=== PATIENT | female | born 1965 | race Caucasian/White ===

== ENCOUNTER 2016-05-23 16:03 | Inpatient (IN) ==
[2016-05-23] MEDS ORDERED: ONDANSETRON 4 MG/2 ML VIAL IV PRN (16:50)
[2016-05-23] MEDS ORDERED: DOCUSATE SODIUM 100 MG CAPSULE PO PRN (16:50)
[2016-05-23] MEDS ORDERED: ZALEPLON 5 MG CAPSULE PO PRN (16:50)
--- NOTE | 2016-05-23 17:23 | XRay Report ---
XR chest 2V Date: 05/23/2016 4:44 PM History: Generalized abdominal pain Comparison: 05/23/2016 Technique: PA and lateral chest Findings: The heart is borderline in size with uncoiling of the aorta. Progressive atelectasis/infiltration in both mid to lower lung zones. Stable mediastinum with degenerative changes. Impression: Limited expiratory chest with progressive atelectasis/infiltration at the lung bases. PROCEDURE INTERPRETED AT [facility] DEPARTMENT OF RADIOLOGY Final Report Signed by: Dr. Alexsandra Corey
--- NOTE | 2016-05-23 17:24 | XRay Report ---
Exam: XR abdomen 2V Date: 05/23/2016 4:44 PM Comparison: 07/30/2013 Indication: Generalized abdominal pain Technique:[Supine and erect abdomen] Findings: Gaseous distention of the bowel, especially the small bowel. Air-fluid levels are noted with no free air. Prior cholecystectomy. Degenerative changes are noted. Impression: Mild gaseous distention of bowel could be related to SBO rather than ileus. There is increased fecal material in the colon. Prior cholecystectomy. PROCEDURE INTERPRETED AT [facility] DEPARTMENT OF RADIOLOGY Final Report Signed by: Dr. Alexsandra Corey
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
[2016-05-23] MEDS: SODIUM CHLORIDE 0.45% 1,000 ML IV SCH (20:40)
[2016-05-23] MEDS: metroNIDAZOLE INJ 750 MG in PREMIX 1 EACH IV SCH (20:41)
[2016-05-23] MEDS: GABAPENTIN 400 MG CAPSULE PO SCH (20:44)
[2016-05-23] MEDS ORDERED: BUPRENORPHINE HCL 8 MG SL SCH (21:00)
[2016-05-23] MEDS: CIPROFLOXACIN INJ 400 MG in PREMIX 1 EACH IV SCH (22:34)
--- NOTE | 2016-05-23 22:45 | XRay Report ---
Portable chest Date: 05/23/2016 Clinical history: Nasogastric tube Comparison: 05/23/2016 Technique: Portable AP sitting chest Findings: The tip of the nasogastric tube projects in the stomach. Sidehole at the GE junction. Impression: The tip of the nasogastric tube projects in the stomach. Side hole at the GE junction. Ideally the tube should be advanced further into the stomach. PROCEDURE INTERPRETED AT [facility] DEPARTMENT OF RADIOLOGY Final Report Signed by: Dr. Alexsandra Corey
[2016-05-24 00:13] LABS: Apearance,Urine Slightly Hazy (Clear); Bacteria,Urine Moderate /HPF (Few); Bilirubin,Urine Negative (Negative); Blood, Urine Moderate mg/dL (Negative); Glucose,Urine (UA) Negative (Negative); Ketones,Urine 5 mg/dL (Negative); Mucus,Urine Few /LPF (Occasional); Nitrite,Urine Positive (Negative); Protein,Urine 100 MG/DL; RBC,Urine 74 /HPF (0-4); Squamous Epithelial Cell,Urine Occasional /HPF (0-10); Urine Color Yellow (Yellow); Urine Specific Gravity 1.025 (1.001-1.035); Urine Urobilinogen < 2.0 EU/DL (0.2-1.0); WBC,Urine 76 /HPF (0-6)
[2016-05-24] MEDS: metroNIDAZOLE INJ 750 MG in PREMIX 1 EACH IV SCH ×3 (03:34→20:34)
[2016-05-24] MEDS: ACETAMINOPHEN 325 MG TABLET PO PRN (05:20)
[2016-05-24] MEDS: SODIUM CHLORIDE 0.45% 1,000 ML IV SCH ×2 (06:12→16:47)
[2016-05-24 06:17] LABS: Basophils % 0.1 % (0.0-0.8); Hematocrit 31.1 VOL% (35.7-47.0); Hemoglobin 10.1 GM/DL (12.0-16.0); Immature Granulocytes % 1.1 %; Lymphocytes # 0.6 10*3/uL (1.4-4.0); Lymphocytes % 3.5 % (21.3-54.2); Mean Corpuscular HGB Conc 32.5 GM/DL (32-36); Mean Corpuscular Hemoglobin 29 PG (27-34); Mean Corpuscular Volume 90.7 FL (87-102); Mean Platelet Volume 9.8 FL (9.6-12.0); Monocytes # 0.3 10*3/uL (0.11-0.8); Monocytes % 1.6 % (1.7-12.7); Neutrophils # 17.1 10*3/uL (1.4-7.4); Neutrophils % 93.7 % (38.7-73.9); Platelet Count 287 T/CUMM (130-400); Red Blood Count 3.43 MC/CUMM (3.8-5.5); Red Cell Distribution Width 13.2 % (9.3-17.3); White Blood Count 18.3 T/CUMM (4-12)
--- NOTE | 2016-05-24 06:48 | CT Report ---
CT abdomen pelvis w con Indication: Abdominal pain, left lower quadrant Comparison: Outside CT abdomen and pelvis dated May 23, 2016 Technique: Multiple axial tomographic images of the abdomen and pelvis were obtained after the administration of 100 cc Omnipaque 350 intravenous contrast. Findings: Bibasilar atelectasis/consolidation noted which is greater on the right. Mild fatty infiltration along the falciform ligament. Subcentimeter hypodensity noted within segment 4 of the liver which is too small to characterize. Subcentimeter focus of hyperenhancement is noted within the left lobe of the liver which remains hyperdense on delayed phase. Status post cholecystectomy. Mild intrahepatic ductal dilatation. Pancreas and spleen grossly unremarkable. Bilateral adrenal glands grossly unremarkable. No evidence of hydronephrosis. Urinary bladder collapsed about a Schuler catheter and contains a small amount of air. Enteric tube noted with distal tip in mid stomach. There is moderate dilatation of proximal and mid small bowel without abrupt transition point. There is a tubular 1 cm thick fluid-filled density with peripheral enhancement located along the posterior aspect of the cecum. At the superior tip of the structure, there is a 3.0 x 2.0 x 1.5 cm fluid density. Wall thickening of the adjacent cecum noted. There is a 4.0 x 10.0 x 1.0 fluid collection within the ventral pelvis adjacent to the uterus with question of subtle peripheral enhancement. There is a 1.8 cm hypodensity in the left adnexa. There is a 4.0 x 3.5 cm fluid collection within the posterior pelvis adjacent to the rectosigmoid junction with minimal peripheral contrast enhancement suggested. Small amount of scattered ascites present. Mild atherosclerotic calcifications present. Degenerative change of the lumbar spine present. Tiny fat-containing umbilical hernia. IMPRESSION: Bibasilar atelectasis/consolidation. There is moderate dilatation of proximal and mid small bowel without abrupt transition point. Findings suspicious for ileus or partial small bowel obstruction. There is a tubular 1 cm thick fluid-filled density with peripheral enhancement located along the posterior aspect of the cecum. At the superior tip of the structure, there is a 3.0 x 2.0 x 1.5 cm fluid density. This could reflect a pericecal abscess or an inflamed appendix with a small abscess at its tip. Wall thickening of the adjacent cecum noted consistent with infection/inflammation. There is a 4.0 x 10.0 x 1.0 fluid collection within the ventral pelvis adjacent to the uterus with question of subtle peripheral enhancement. This collection is nonspecific but could reflect abscess. There is a 4.0 x 3.5 cm fluid collection within the posterior pelvis adjacent to the rectosigmoid junction with minimal peripheral contrast enhancement suggested. This collection is nonspecific but could reflect abscess. Small amount of scattered ascites present. There is a 1.8 cm hypodensity in the left adnexa. Consider pelvic ultrasound for further evaluation. Mild intrahepatic ductal dilatation status post cholecystectomy. Correlate with bilirubin. Incompletely characterized subcentimeter liver lesions are indeterminate. Preliminary report was issued by [facility]. Findings discussed with Dr. Shannon at 2:10 AM on May 24, 2016 by Deni Nowak MD. PROCEDURE INTERPRETED AT [facility] DEPARTMENT OF RADIOLOGY Final Report Signed by: Dr Mikel Cox
[2016-05-24 06:49] LABS: Band Neutrophils 3 % (0-10); Lymphocytes 9 % (20-55); Segmented Neutrophils 87 % (50-85); Total Cells Counted 100
[2016-05-24 06:50] LABS: Hypochromasia 1+; Platelet Estimate Adequate
[2016-05-24 06:54] LABS: Bilirubin,Total 0.5 MG/DL (0.2-1.0); Calcium 8.1 MG/DL (8.5-10.1); Osmolality,Calculated 277.4 MOS/KG (273-304); Potassium 3.8 MMOL/L (3.5-5.1); Total Protein 5.6 G/DL (6.4-8.3)
--- NOTE | 2016-05-24 07:30 | General Surgery Progress Note ---
Assessment and Plan (1) Abdominal pain Status: Acute Assessment and plan: This patient has a dilated appendix with surrounding inflammation and fluid and also some thickening in the cecum focally. There are several fluid collections throughout the pelvis. The most likely explanation given her location of her pain is appendicitis and I don't think that this will be amenable to percutaneous drainage and antibiotics alone so I recommended a diagnostic laparoscopy with appendectomy and drainage of any fluid that we can find. The patient has far as I can tell has never had a test despite 2 ER visits and admissions 5 ordered one this morning and assuming metastases negative we will go ahead with surgery today. Current Visit: Yes Subjective Patient reports: Present: still having pain, afebrile Narrative: The patient had a repeat CT scan last night which demonstrates a thickened appendix with some fluid around it and some reactive thickening in the cecum. There are also several fluid collections scattered throughout the pelvis in the cul-de-sac and anteriorly as well. Her white blood cell count is coming on 18, 000 from 25,000 but she is still having a lot of pain and tenderness. Exam - Constitutional Vitals: Period Temp Pulse Resp BP Sys/Duong Pulse Ox Last 24 Hr 98.6 F-99.7 F 69-137 16-22 108-176/49-78 93-97 General appearance: normal weight, mild distress - Head Head exam: Present: normal inspection, normocephalic - Eye Eye exam: Present: EOMI Pupils: Present: [place] - ENT ENT exam: Present: normal exam Mouth exam: Present: normal external inspection, normal voice - Neck Neck exam: Present: normal inspection, trachea midline - Respiratory Respiratory exam: Present: clear to auscultation bilaterally. Absent: accessory muscle use, chest wall tenderness - Cardiovascular Cardiovascular exam: Present: RRR. Absent: systolic murmur, tachycardia - GI/Abdominal GI/Abdominal exam: Present: distended, hypoactive bowel sounds, tenderness (the patient is most tender in the right lower quadrant.), soft - Extremities Exam Extremities exam: Present: normal inspection, normal capillary refill - Back Exam Back exam: Present: normal inspection - Neurological Exam Neurological exam: Present: alert, oriented X3 Speech: Present: normal - Skin Skin exam: Present: normal color, warm Results - Labs CBC & BMP: 05/24/16 05:09 05/24/16 05:09
[2016-05-24] MEDS ORDERED: TISSUE ADHESIVE 1 EACH APPLICATOR TOP ONE (07:38)
[2016-05-24] MEDS ORDERED: BUPIVACAINE MPF 0.25% /EPI 30 ML VIAL ONE (07:39)
[2016-05-24] MEDS ORDERED: LIDOCAINE 1%/EPI INJ 20 ML VIAL ONE (07:39)
[2016-05-24] MEDS ORDERED: ONDANSETRON 4 MG/2 ML VIAL ONE ×2 (08:10→09:50)
[2016-05-24] MEDS ORDERED: SUCCINYLCHOLINE 200 MG/10 ML VIAL ONE (08:10)
[2016-05-24] MEDS ORDERED: NEOSTIGMINE 10 MG/10 ML VIAL ONE (08:10)
[2016-05-24] MEDS ORDERED: KETOROLAC 30 MG/1 ML VIAL ONE ×2 (08:10→10:24)
[2016-05-24] MEDS ORDERED: DEXAMETHASONE 10 MG/1 ML VIAL ONE (08:10)
[2016-05-24] MEDS ORDERED: LIDOCAINE 2% 5 ML VIAL ONE (08:10)
[2016-05-24] MEDS ORDERED: ROCURONIUM 100 MG/10 ML VIAL IV ONE (08:10)
[2016-05-24] MEDS ORDERED: GLYCOPYRROLATE 0.4 MG/2 ML VIAL ONE (08:10)
[2016-05-24] MEDS ORDERED: PROPOFOL 200 MG/20 ML VIAL IV ONE (08:10)
[2016-05-24] MEDS ORDERED: PHENYLEPHRINE 1 MG/10 ML SYRINGE IV ONE (08:10)
[2016-05-24] MEDS: LACTATED RINGERS 1,000 ML IV SCH ×2 (08:17→09:41)
[2016-05-24] MEDS ORDERED: PANTOPRAZOLE 40 MG TABLET PO SCH (09:00)
[2016-05-24] MEDS ORDERED: VORTIOXETINE HYDROBROMIDE 10 MG PO SCH (09:00)
[2016-05-24] MEDS ORDERED: fentaNYL 100 MCG/2 ML VIAL ONE (09:47)
[2016-05-24] MEDS ORDERED: ACETAMINOPHEN 1,000 MG/100 ML VIAL IV ONE (09:47)
[2016-05-24] MEDS ORDERED: SEVOFLURANE 1 UNIT/15 MINUTE INH ONE (09:47)
[2016-05-24] MEDS ORDERED: LACTATED RINGERS 1,000 ML IV ONE (09:47)
[2016-05-24] MEDS ORDERED: MIDAZOLAM 2 MG/2 ML VIAL ONE (09:47)
[2016-05-24] MEDS ORDERED: HYDROmorphone 2 MG/1 ML VIAL ONE (09:50)
[2016-05-24] MEDS: HYDROmorphone 2 MG/1 ML VIAL IV PRN ×4 (09:52→10:07)
[2016-05-24] MEDS ORDERED: ONDANSETRON 4 MG/2 ML VIAL IV PRN (09:55)
--- NOTE | 2016-05-24 10:14 | Operative Note ---
Date of procedure: 05/24/16 Pre-op diagnosis: acute appendicitis Post-op diagnosis: other (acute perforated appendicitis with abscess) Procedure: Preoperative diagnosis Acute appendicitis Postoperative diagnosis Acute perforated appendicitis with abscess Procedures performed 1. Diagnostic laparoscopy 2. Laparoscopic lysis of adhesions 3. Laparoscopic appendectomy 4. Laparoscopic drainage of pelvic and pericolic abscess with drain placement 22 modifier Findings Diagnostic laparoscopy revealed severe inflammation with phlegmon changes and exudate in the right lower quadrant. There is extensive adhesions to the midline that were taken down using sharp dissection with electrocautery where needed. A complete laparoscopic lysis of adhesions was completed to visualize the pelvic structures. Once all the trochars were placed, the area in the right lower quadrant pericolic gutter after the colon was mobilized revealed a large eruption of pus and cultures were sent from this to the lab. What we found was that the appendix had basically a avulsed and ruptured about 1 cm distal to the base of the appendix and the remaining appendix was sitting free floating on its mesentery in the right lower quadrant. There was a large amount of pus associated with this. Cultures were sent from this to the lab. LORRIE drain was left in the abscess cavity. These findings made the case take more than twice usual length of time. For this reason a 22 modifier was added. Complications None apparent Specimen 1. Cultures from right lower quadrant abscess 2. Appendix Blood loss 10 mL Anesthesia GETA Indications Abdominal pain with evidence of appendicitis on CT scan Description of procedure The patient was taken to the operating room and transferred to the operating table in the supine position. Pressure points were padded and SCDs were placed large cavities. General endotracheal anesthesia was administered. The abdomen was prepped with chlorhexidine and draped sterilely. Preoperative antibiotics were administered, and a timeout was performed. The abdomen was entered and a right paramedian location supraumbilically with a Veress needle. Local anesthetic was administered and a 12 mm skin incision was made with an 11 blade scalpel. Veress needle was used to enter the peritoneal cavity with towel clips used to retract the abdominal wall. Intraperitoneal location was confirmed by double click technique. Aspiration was negative. Saline drop test confirmed intraperitoneal location. The abdomen was insufflated to 15 mmHg with an initial insufflation pressure of 7 mmHg. The Veress needle was removed and a 12 mm trocar was placed bluntly. Diagnostic laparoscopy was performed. There is a large amount of exudate and inflammation in the right lower quadrant with very injected and erythematous intestines in this location. There is also a large amount of adhesions to the midline between the omentum and the bowel. A 5 mm trocar was placed in the left lower quadrant under direct visualization after local anesthetic was administered. Laparoscopic lysis of adhesions was completed and complete adhesio lysis was performed to allow visualization of the pelvic structures and the extent of the pathology we were seeing. An additional 5 mm trocar was placed in the suprapubic location and the bowel was dissected away from the abdominal wall in the right lower quadrant where was fairly adhesed. He was able to be safely mobilized off the wall and when mobilizing the cecum medially large pus pocket was encountered and a large amount of pus was drained from this area. Cultures were sent from this to the lab. The cecum was eventually completely mobilized with tedious dissection that took much longer than usual because of inflammation present. Once the colon was mobilized medially I was able to visualize the remaining appendix. The appendix appeared to have ruptured and torn about 1 cm distal to the base of the appendix off the cecum. The appendix was floating free on its mesentery and no fecalith was seen. All the pus was suctioned out and the appendiceal base was ligated with a 0 Vicryl Endoloop stitch with good result. The mucosa of the appendix was cauterized. The mesentery was connected to the distal appendix which had LINEN ATTENDANT avulsed off of the appendiceal stump was divided with a vascular load RINA stapler. The pelvic cul-de-sac between the uterus and rectum was developed and the fluid from this area was drained. The abdomen was suction irrigated until the effluent was clear. There was some exudate up by the liver as well this was all suctioned out. The bowel was very inflamed and further mobilization of the cecum would've likely resulted in injury to this part of the colon so the appendiceal stump was ligated using an Endoloop and a drain was left in this location rather than attempting further dissection of the colon and risking injury. Again, the closure looked viable but there was a lot of inflammation in this area but I thought it was the safest thing to do given the above-mentioned reasons. A #10 LORRIE drain was left near the area of the right lower quadrant abscess and the CO2 was released from the abdomen. The trochars were removed after the camera was removed and the drain was sewn in place through one of the trocar sites with 3-0 nylon suture. A drain with interrupted bulb suction and the skin incisions were closed with 4-0 Monocryl. The wounds were dressed with Steri-Strips and Mastisol and sterile dressings were applied. The patient was awakened from anesthesia and transferred to recovery in her Schuler was left in place. Postoperative plan Monitor drain output and remove Schuler and NG tube when ready Transfer patient to surgical service Implants: #10 LORRIE drain Anesthesia: JEANETTEA, local Surgeon / Physician: Rock Light Estimated blood loss: minimal (10 mL) Specimens: other (1. cultures 2. appendix) Condition: stable Disposition: PACU Results - Labs CBC & BMP: 05/24/16 05:09 05/24/16 05:09 Discharge Plan - Discharge Medications No Action Ibuprofen Tab [Motrin Tab] 800 mg PO TID Vortioxetine Hydrobromide [Brintellix] 10 mg PO DAILY Gabapentin Cap/Tab [Neurontin Cap/Tab] 400 mg PO QID Buprenorphine HCl 8 mg SL BID - Follow Up or Referral - Forms/Instructions
[2016-05-24] MEDS ORDERED: MEPERIDINE 25 MG/1 ML VIAL ONE (10:23)
[2016-05-24] MEDS ORDERED: cloNIDine 0.1 MG TABLET PO ONE ×2 (10:25→10:30)
[2016-05-24] MEDS ORDERED: KETOROLAC 30 MG/1 ML VIAL IV ONE (10:25)
[2016-05-24] MEDS ORDERED: MEPERIDINE 25 MG/1 ML VIAL IV ONE (10:26)
[2016-05-24] MEDS ORDERED: PROMETHAZINE 25 MG/1 ML VIAL ONE (10:38)
[2016-05-24] MEDS ORDERED: PROMETHAZINE INJ 25 MG in SODIUM CHLORIDE 0.9% 50 ML IV ONE (10:41)
[2016-05-24] MEDS ORDERED: HYDROmorphone 2 MG/1 ML VIAL IV PRN (10:58)
[2016-05-24] MEDS: GABAPENTIN 400 MG CAPSULE PO SCH ×5 (11:02→20:40)
[2016-05-24] MEDS ORDERED: hydrALAZINE 20 MG/1 ML VIAL ONE (11:17)
[2016-05-24] MEDS: hydrALAZINE 20 MG/1 ML VIAL IV PRN ×2 (11:18→17:12)
--- NOTE | 2016-05-24 11:45 | Hospitalist Progress Note ---
Assessment and Plan (1) Acute appendicitis Status: Acute Assessment and plan: Laparoscopic appendectomy, lysis of adhesions and drainage of pelvic and pericolic abscess with drain placement. plan Follow Surgery's recommendations Current Visit: Yes (2) Abdominal pain Status: Acute Assessment and plan: due to acute appendicitis s/p surgery -continue with surgery's recommendations Current Visit: Yes (3) Urinary tract infection Status: Acute Assessment and plan: continue with IV antibiotics -follow sensitivities Current Visit: Yes (4) Nausea vomiting and diarrhea Status: Acute Assessment and plan: most likely due to an acute abdomen -continue IVF, antiemetics,PPIs -continue Surgery's recommendations Current Visit: Yes (5) Elevated blood pressure reading Status: Acute Assessment and plan: continue with IV hydralazine prn optimize pain control Current Visit: Yes Hospitalist: Subjective Interval history: Patient had a Laparoscopic appendectomy, lysis of adhesions and drainage of pelvic and pericolic abscess with drain placement done this am due to an acute appendicitis Exam - Constitutional Vitals: Period Temp Pulse Resp BP Sys/Duong Pulse Ox Last 24 Hr 98.6 F-99.7 F 69-137 16-22 108-176/49-102 93-98 General appearance: no acute distress - Head Head exam: Present: normal inspection - Respiratory Respiratory exam: Present: clear to auscultation bilaterally - Cardiovascular Cardiovascular exam: Present: regular rate and rhythm - GI/Abdominal GI/Abdominal exam: Present: guarding, tenderness - Extremities Exam Extremities exam: Present: normal inspection Results - Labs CBC & BMP: 05/24/16 05:09 05/24/16 05:09 Lab Results: I have reviewed the past 24 hour labs
--- NOTE | 2016-05-24 11:48 | Anesthesia ---
Anesthesia Post OP - Post Ansesthetic Evaluation Patient seen in post op: Yes Resp: within normal limits CV: within normal limits Mental: within normal limits Temp: within normal limits [id number]: within normal limits Nausea and Vomiting: within normal limits Pain: within normal limits
[2016-05-24] MEDS ORDERED: NALOXONE 0.4 MG/ML VIAL IV PRN (13:28)
--- NOTE | 2016-05-24 13:33 | Event Note ---
Post-op check. Patient in pain and tachycardic and diaphoretic. Started GEOLOGY SCIENTIST for pain control. Will keep NPO until NGT is d/c'd.
[2016-05-24] MEDS: PANTOPRAZOLE 40 MG VIAL IV SCH (14:55)
[2016-05-24] MEDS: HYDROmorphone PCA 30 MG/30 ML SYRINGE IV SCH (14:55)
[2016-05-24] MEDS: CIPROFLOXACIN INJ 400 MG in PREMIX 1 EACH IV SCH (16:54)
[2016-05-25] MEDS: metroNIDAZOLE INJ 750 MG in PREMIX 1 EACH IV SCH ×2 (04:00→04:51)
[2016-05-25 05:39] LABS: Basophils % 0.1 % (0.0-0.8); Hematocrit 30.1 VOL% (35.7-47.0); Hemoglobin 9.9 GM/DL (12.0-16.0); Immature Granulocytes % 1.3 %; Immature Granulocytes Absolute 0.17 #; Lymphocytes # 0.4 10*3/uL (1.4-4.0); Lymphocytes % 2.7 % (21.3-54.2); Mean Corpuscular HGB Conc 32.9 GM/DL (32-36); Mean Corpuscular Hemoglobin 30 PG (27-34); Mean Corpuscular Volume 89.6 FL (87-102); Mean Platelet Volume 9.8 FL (9.6-12.0); Monocytes # 0.3 10*3/uL (0.11-0.8); Monocytes % 2.7 % (1.7-12.7); Neutrophils # 11.9 10*3/uL (1.4-7.4); Neutrophils % 93.2 % (38.7-73.9); Platelet Count 345 T/CUMM (130-400); Red Blood Count 3.36 MC/CUMM (3.8-5.5); White Blood Count 12.8 T/CUMM (4-12)
[2016-05-25 06:01] LABS: Calcium 8.4 MG/DL (8.5-10.1); Magnesium 2.1 MG/DL (1.8-2.4); Osmolality,Calculated 283.1 MOS/KG (273-304); Potassium 3.8 MMOL/L (3.5-5.1)
[2016-05-25 06:10] LABS: Lymphocytes 3 % (20-55); Platelet Estimate Adequate; Segmented Neutrophils 95 % (50-85); Total Cells Counted 100
[2016-05-25 06:11] LABS: Burr Cells Slight; Hypochromasia Slight
[2016-05-25] MEDS: SODIUM CHLORIDE 0.45% 1,000 ML IV SCH ×2 (06:49→20:17)
[2016-05-25] MEDS: GABAPENTIN 400 MG CAPSULE PO SCH ×4 (08:54→21:44)
[2016-05-25] MEDS: PANTOPRAZOLE 40 MG VIAL IV SCH (08:55)
--- NOTE | 2016-05-25 10:11 | Event Note ---
05/25/2016 Patient is afebrile but acting as though she is in extreme discomfort on her abdomen at this time. The abdomen is soft there's very few bowel sounds present. Drainage is minimal and her blood counts not significantly decreased its only 31 today. No bowel movement and no good bowel activity at this point but she seems to be extremely anxious at this point in time. We will maintain present level of care and keep her NG tube for now.
--- NOTE | 2016-05-25 10:57 | Hospitalist Progress Note ---
Assessment and Plan (1) Acute appendicitis Status: Acute Current Visit: Yes Hospitalist: Subjective Interval history: Still complaining of pain and has a MEDIA MARKETING MANAGER pump. Her cultures grew gram-negative rods and gram positives some in blood stream and some in the fluid from the appendix. Assessment and plan 05/25/2016: Acute appendicitis with possible surrounding abscess Since cultures grew gram negatives and gram-positive. Enterococcus could be a possibility. We will quit and started on vancomycin. I will decrease the dose of Flagyl and hopefully discontinued by tomorrow once we have final cultures. Continue IV Cipro for now. She is currently still nothing by mouth and has an NG tube.. Postsurgical care is mainly being followed by surgery. Exam - Constitutional Vitals: Period Temp Pulse Resp BP Sys/Duong Pulse Ox Last 24 Hr 98.6 F-99.5 F 117-130 15-20 118-172/68-102 94-98 Exam: Gen.: In mild acute distress Head and neck: Pupils are reactive neck is supple Cardiovascular: S1-S2 with regular rate and rhythm Respiratory: Lungs are clear to auscultation and percussion Abdomen: Soft, bowel sounds are sluggish but positive. LORRIE drain is noted Extremities: No edema Neuro: Grossly intact Results - Labs CBC & BMP: 05/25/16 04:24 05/25/16 04:24 Lab Results: I have reviewed the past 24 hour labs
[2016-05-25] MEDS: metroNIDAZOLE INJ 500 MG in PREMIX 1 EACH IV SCH ×2 (14:26→21:44)
[2016-05-25] MEDS: VANCOMYCIN INJ 1,250 MG in SODIUM CHLORIDE 0.9% 250 ML IV SCH ×2 (14:29→23:34)
[2016-05-25] MEDS: CIPROFLOXACIN INJ 400 MG in PREMIX 1 EACH IV SCH (16:48)
[2016-05-25] MEDS: LACTATED RINGERS 1,000 ML IV SCH (20:12)
[2016-05-25] MEDS: HYDROmorphone PCA 30 MG/30 ML SYRINGE IV SCH (23:45)
[2016-05-26 04:42] LABS: Basophils % 0.1 % (0.0-0.8); Eosinophils % 0.1 % (0.00-10.9); Hematocrit 31.5 VOL% (35.7-47.0); Hemoglobin 10.4 GM/DL (12.0-16.0); Immature Granulocytes % 0.5 %; Immature Granulocytes Absolute 0.05 #; Lymphocytes # 0.7 10*3/uL (1.4-4.0); Lymphocytes % 7.4 % (21.3-54.2); Mean Corpuscular Hemoglobin 29 PG (27-34); Mean Platelet Volume 9.2 FL (9.6-12.0); Monocytes # 0.6 10*3/uL (0.11-0.8); Monocytes % 5.6 % (1.7-12.7); Neutrophils # 8.6 10*3/uL (1.4-7.4); Neutrophils % 86.3 % (38.7-73.9); Platelet Count 359 T/CUMM (130-400); Red Blood Count 3.54 MC/CUMM (3.8-5.5)
[2016-05-26 05:16] LABS: Magnesium 1.7 MG/DL (1.8-2.4); Potassium 3.5 MMOL/L (3.5-5.1)
[2016-05-26] MEDS: metroNIDAZOLE INJ 500 MG in PREMIX 1 EACH IV SCH ×3 (05:27→22:27)
[2016-05-26] MEDS: PANTOPRAZOLE 40 MG VIAL IV SCH (08:47)
[2016-05-26] MEDS: GABAPENTIN 400 MG CAPSULE PO SCH ×4 (08:49→22:27)
--- NOTE | 2016-05-26 09:46 | Event Note ---
05/26/2016. Patient still has not had a bowel movement at this time and didn't abdominal distention is still present but her abdomen is fairly soft. Bowel sounds are fairly hypoactive in difficult fine. Drainage is minimal from the drains. We will attempt to put some Mylanta down the NG tube and get her more ambulatory and sibling stimulate some to get the bowels functioning at this point.
[2016-05-26] MEDS: ALUMINUM/MAGNES/SIMETH MAX STR 30 ML UDCUP PO SCH ×3 (10:31→22:27)
[2016-05-26] MEDS: VANCOMYCIN INJ 1,250 MG in SODIUM CHLORIDE 0.9% 250 ML IV SCH (14:07)
[2016-05-26] MEDS: SODIUM CHLORIDE 0.45% 1,000 ML IV SCH (14:07)
--- NOTE | 2016-05-26 15:14 | Hospitalist Progress Note ---
Assessment and Plan (1) Acute appendicitis Status: Acute Current Visit: Yes (2) Acute appendicitis with perforation and peritoneal abscess Status: Acute Current Visit: Yes Hospitalist: Subjective Interval history: Feels a little bit better compared to yesterday. She still has not had a bowel movement and still has an indwelling Schuler catheter. She still mildly tachycardic. Her cultures grew several different orgasms and it's unclear which ones aren't real eating more than likely she does have a real Escherichia coli infection. Assessment and plan for 2006: Acute perforated appendicitis with abscess One blood culture grew gram-positive coag-negative staph and she also grew staph hominis. Microbiology from surgery grew Escherichia coli as well as some gram positives. Her urine had grown Escherichia coli although it was not substantially colonies. I had started empirically on vancomycin awaiting these cultures. Staph hominis is sensitive to ciprofloxacin and should be sensitive to Flagyl as well. We will discontinue vancomycin at this time and continue with Cipro and metronidazole. We will discontinue Schuler catheter and we are encouraging her to set up in a chair. Exam - Constitutional Vitals: Period Temp Pulse Resp BP Sys/Duong Pulse Ox Last 24 Hr 98.4 F-99.4 F 112-123 14-21 119-154/72-93 90-97 Exam: Gen.: In mild acute distress Head and neck: Pupils are reactive neck is supple Cardiovascular: S1-S2 with regular rate and rhythm Respiratory: Lungs are clear to auscultation and percussion Abdomen: Soft, bowel sounds are sluggish but positive. LORRIE drain is noted Extremities: No edema Neuro: Grossly intact Results - Labs CBC & BMP: 05/26/16 04:23 05/26/16 04:23 Lab Results: I have reviewed the past 24 hour labs
[2016-05-26] MEDS: CIPROFLOXACIN INJ 400 MG in PREMIX 1 EACH IV SCH (16:18)
[2016-05-27] MEDS: metroNIDAZOLE INJ 500 MG in PREMIX 1 EACH IV SCH ×3 (04:44→22:39)
[2016-05-27] MEDS: ALUMINUM/MAGNES/SIMETH MAX STR 30 ML UDCUP PO SCH ×4 (04:44→22:39)
[2016-05-27] MEDS: HYDROmorphone PCA 30 MG/30 ML SYRINGE IV SCH ×2 (04:45→15:57)
[2016-05-27 07:04] LABS: Basophils % 0.3 % (0.0-0.8); Eosinophils # 0.1 10*3/uL (0.0-0.87); Eosinophils % 0.5 % (0.00-10.9); Hemoglobin 10.4 GM/DL (12.0-16.0); Immature Granulocytes Absolute 0.11 #; Lymphocytes # 0.9 10*3/uL (1.4-4.0); Lymphocytes % 8.2 % (21.3-54.2); Mean Corpuscular HGB Conc 33.5 GM/DL (32-36); Mean Corpuscular Hemoglobin 29 PG (27-34); Mean Corpuscular Volume 86.8 FL (87-102); Mean Platelet Volume 9.6 FL (9.6-12.0); Monocytes # 0.6 10*3/uL (0.11-0.8); Monocytes % 5.5 % (1.7-12.7); Neutrophils # 9.2 10*3/uL (1.4-7.4); Neutrophils % 84.5 % (38.7-73.9); Platelet Count 367 T/CUMM (130-400); Red Blood Count 3.57 MC/CUMM (3.8-5.5); Red Cell Distribution Width 13.1 % (9.3-17.3); White Blood Count 10.9 T/CUMM (4-12)
[2016-05-27 07:37] LABS: Band Neutrophils 1 % (0-10); Hypochromasia 1+; Lymphocytes 5 % (20-55); Platelet Estimate Normal; Segmented Neutrophils 90 % (50-85); Total Cells Counted 100
[2016-05-27 07:42] LABS: Calcium 7.9 MG/DL (8.5-10.1); Magnesium 1.9 MG/DL (1.8-2.4); Potassium 3.4 MMOL/L (3.5-5.1)
[2016-05-27] MEDS: SODIUM CHLORIDE 0.45% 1,000 ML IV SCH ×2 (08:15→08:42)
[2016-05-27] MEDS: LACTATED RINGERS 1,000 ML IV SCH (08:17)
--- NOTE | 2016-05-27 08:51 | Event Note ---
General Surgery Progress Note Chief Complaint This patient is a 51 year old woman admitted with acute perforated appendicitis treated with laparoscopic appendectomy with lysis of adhesions and drainage of abdominal abscess on 05/24/2016 Interval History Weekend events were noted. The patient had a BM last night and is passing gas. She is hungry and has minimal NG tube output. Pain is well controlled. Physical Exam Afebrile, normal vital signs with the exception of HR elevated in the low 100s Chest clear Heart tachycardic but regular Abdominal exam with normal bowel sounds, non-distended, incisions clean LORRIE drain serosanguinous Labs reviewed Cultures from OR with E coli (sensitive to cipro), final still pending Assessment/Plan Discontinue NG tube Continue IV fluids Continue antibiotics Ambulate in hallway continue incentive spirometry
[2016-05-27] MEDS: GABAPENTIN 400 MG CAPSULE PO SCH ×4 (09:46→22:39)
[2016-05-27] MEDS: PANTOPRAZOLE 40 MG VIAL IV SCH (09:46)
[2016-05-27] MEDS ORDERED: LIDOCAINE 2% 5 ML VIAL ONE (10:29)
[2016-05-27] MEDS ORDERED: PROPOFOL 200 MG/20 ML VIAL IV ONE (10:29)
--- NOTE | 2016-05-27 11:47 | Pathology Report from [facility] ---
ACCESSION # : [id number] PATIENT NAME : Sona Estrella ORDERING DR : Rock Light MD CLINICAL HX: Abdominal pain, appendicitis POST-OP DX: Same SPECIMEN INFO: Appendix GROSS DESCRIPTION: The specimen is received in formalin labeled with the patient 's name Sona Estrella consists of an appendix measuring 5.0 x 0.5 cm. The serosa is focally erythematous. The lumen is hemorrhagic and patent with no fecaliths or perforations seen. Milling Machine Operator sections are submitted in one cassette. DIAGNOSIS FOR SONA ESTRELLA: APPENDIX, APPENDECTOMY: Acute appendicitis. SERVICE DATE: 05/24/2016 REPORT DATE: 05/27/2016 PATHOLOGIST: Star Orantes M.D. [facility]
[2016-05-27] MEDS: DEXT 5% NACL 0.45% KCL 20 MEQ 20 MEQ/1,000 ML BAG IV SCH ×2 (12:26→18:07)
--- NOTE | 2016-05-27 16:01 | Hospitalist Progress Note ---
Assessment and Plan - Time spent with patient Time spent with patient: Less than 30 minutes (1) Anemia Status: Chronic Assessment and plan: Stable Current Visit: Yes (2) Acute appendicitis with perforation and peritoneal abscess Status: Acute Assessment and plan: Continuing to recover. We will continue antibiotics recommended to use Dilaudid only when pain is not tolerable. Continue incentive spirometry will keep follow-up with the surgery Current Visit: Yes (3) Urinary tract infection Status: Acute Assessment and plan: Escherichia coli on urine and sensitive to Cipro Current Visit: Yes Hospitalist: Subjective Interval history: Ms. Schuler is a 51 year old female with history of hepatitis C and depression substance abuse admitted on 05/23/2016 with the senior down pain associated with nausea vomiting and diarrhea with high fever. She was diagnosed to have acute perforated appendicitis and now is status post laparoscopic appendectomy with lysis of adhesions and drainage of abdominal abscess on 05/24/2016. She is reported to have a positive blood cultures with staph hominis and the strep salivarius. Urine culture showed Escherichia coli cultured from the local abdominal cavity revealed E coli pseudomonas and enterococcus. She has been on flagyl andciprofloxacin. She has received vancomycin which had been discontinued her WBC count was 18.3 on admission and today is 10.9.She reported having bowel movement and tolerating a diet without any nausea or vomiting. She is using dialudid recreation manager. Abdominal pain is better than yesterday no fever. Patient is being followed by general surgery service and appreciate help Exam - Constitutional Vitals: Period Temp Pulse Resp BP Sys/Duong Pulse Ox Last 24 Hr 98.1 F-99.7 F 20-121 16-22 113-140/69-111 93-96 General appearance: no acute distress - Eye Eye exam: Present: EOMI Pupils: Present: [place] - Respiratory Respiratory exam: Present: clear to auscultation bilaterally. Absent: rales, rhonchi - Cardiovascular Cardiovascular exam: Present: regular rate and rhythm. Absent: tachycardia - GI/Abdominal GI/Abdominal exam: Present: tenderness (appropriately tender. BS +), soft - Neurological Exam Neurological exam: Present: alert, oriented X3 Results - Labs CBC & BMP: 05/27/16 06:30 05/27/16 06:30 Lab Results: I have reviewed the past 24 hour labs
[2016-05-27] MEDS: CIPROFLOXACIN INJ 400 MG in PREMIX 1 EACH IV SCH (18:07)
[2016-05-28] MEDS: ACETAMINOPHEN 325 MG TABLET PO PRN (02:19)
[2016-05-28] MEDS: DEXT 5% NACL 0.45% KCL 20 MEQ 20 MEQ/1,000 ML BAG IV SCH (03:58)
[2016-05-28 04:49] LABS: Basophils % 0.2 % (0.0-0.8); Eosinophils # 0.2 10*3/uL (0.0-0.87); Eosinophils % 2.1 % (0.00-10.9); Hematocrit 29.9 VOL% (35.7-47.0); Hemoglobin 9.6 GM/DL (12.0-16.0); Immature Granulocytes % 1.3 %; Immature Granulocytes Absolute 0.12 #; Lymphocytes # 1.3 10*3/uL (1.4-4.0); Lymphocytes % 14.8 % (21.3-54.2); Mean Corpuscular HGB Conc 32.1 GM/DL (32-36); Mean Corpuscular Hemoglobin 29 PG (27-34); Mean Corpuscular Volume 90.3 FL (87-102); Mean Platelet Volume 9.7 FL (9.6-12.0); Monocytes # 0.6 10*3/uL (0.11-0.8); Monocytes % 7.1 % (1.7-12.7); Neutrophils # 6.7 10*3/uL (1.4-7.4); Neutrophils % 74.5 % (38.7-73.9); Platelet Count 340 T/CUMM (130-400); Red Blood Count 3.31 MC/CUMM (3.8-5.5); Red Cell Distribution Width 12.9 % (9.3-17.3)
[2016-05-28] MEDS: ALUMINUM/MAGNES/SIMETH MAX STR 30 ML UDCUP PO SCH ×3 (04:52→10:59)
[2016-05-28] MEDS: metroNIDAZOLE INJ 500 MG in PREMIX 1 EACH IV SCH (04:52)
[2016-05-28 05:29] LABS: Platelet Estimate Increased
[2016-05-28 05:31] LABS: Osmolality,Calculated 282.1 MOS/KG (273-304); Potassium 3.7 MMOL/L (3.5-5.1)
[2016-05-28] MEDS: HYDROmorphone PCA 30 MG/30 ML SYRINGE IV SCH (05:39)
[2016-05-28] MEDS ORDERED: CLINDAMYCIN INJ 600 MG in PREMIX 1 EACH IV SCH (07:30)
--- NOTE | 2016-05-28 07:37 | Event Note ---
General Surgery Progress Note Chief Complaint This patient is a 51 year old woman admitted with acute perforated appendicitis treated with laparoscopic appendectomy with lysis of adhesions and drainage of abdominal abscess on 05/24/2016 Interval History No events overnight. Clear liquid diet was tolerated without difficulty. The patient is walking in the hallways. Pain is well-controlled. Urinating and having bowel movements normally. LORRIE drain has minimal serous output. Physical Exam Afebrile, normal vital signs with the exception of HR elevated in the low 100s Chest clear Heart tachycardic but regular Abdominal exam with normal bowel sounds, non-distended, incisions clean LORRIE drain serosanguinous Labs reviewed Cultures reviewed. Assessment/Plan Advanced to regular diet Continue incentive spirometry next on continue ambulating in the hallway Discontinue AUTOMOTIVE DISMANTLER and changed as needed IV pain medication with by mouth is the primary I have changed the patient's antibiotics to match all the cultures that she has had. She is currently on clindamycin, ampicillin, and ciprofloxacin.
[2016-05-28] MEDS ORDERED: HYDROmorphone 2 MG/1 ML VIAL IV PRN (07:38)
[2016-05-28] MEDS: PANTOPRAZOLE 40 MG VIAL IV SCH (08:48)
[2016-05-28] MEDS: GABAPENTIN 400 MG CAPSULE PO SCH ×4 (08:48→21:41)
[2016-05-28] MEDS: AMPICILLIN INJ 1,000 MG in SODIUM CHLORIDE 0.9% 100 ML IV SCH ×2 (10:44→10:59)
[2016-05-28] MEDS ORDERED: ONDANSETRON 4 MG TABLET PO PRN (11:03)
[2016-05-28] MEDS: CIPROFLOXACIN 500 MG TABLET PO SCH ×2 (13:29→21:41)
[2016-05-28] MEDS: AMOXICILLIN/CLAV 875 MG TABLET PO SCH ×2 (13:29→21:42)
[2016-05-28] MEDS: PANTOPRAZOLE 40 MG TABLET PO SCH (13:29)
--- NOTE | 2016-05-28 16:21 | Hospitalist Progress Note ---
Assessment and Plan (1) Anemia Status: Chronic Assessment and plan: We'll continue to monitor hemoglobin is male slightly down from yesterday she is postoperative. May be due to change of hydration status Current Visit: Yes (2) Acute appendicitis with perforation and peritoneal abscess Status: Acute Assessment and plan: Continuing to recover. On oral antibiotics at present will continue and monitor for any symptoms of infection. A repeat white count tomorrow Current Visit: Yes (3) Urinary tract infection Status: Acute Assessment and plan: Escherichia coli on urine and sensitive to Cipro Current Visit: Yes Hospitalist: Subjective Interval history: Ms. Schuler is a 51 year old female with history of hepatitis C and depression substance abuse admitted on 05/23/2016 with the severe abdominal pain associated with nausea vomiting and diarrhea with high fever. She was diagnosed to have acute perforated appendicitis and now is status post laparoscopic appendectomy with lysis of adhesions and drainage of abdominal abscess on 05/24/2016. She is reported to have a positive blood cultures with staph hominis and the strep salivarius. Urine culture showed Escherichia coli cultured from the local abdominal cavity revealed E coli pseudomonas and enterococcus. Her WBC count was 18.3 on admission and today is 9.0 today. She she is doing better today off IV antibiotics and placed on by mouth Cipro and Augmentin. She is off AMBULANCE MECHANIC pump. She had the solid food earlier today she did not vomit but she ate slowly and the unable to tolerate due to that. She is afebrile Exam - Constitutional Vitals: Period Temp Pulse Resp BP Sys/Duong Pulse Ox Last 24 Hr 99.1 F-100.1 F 90-108 18-18 109-112/61-66 90-91 General appearance: no acute distress - Respiratory Respiratory exam: Present: clear to auscultation bilaterally. Absent: rales, rhonchi - Cardiovascular Cardiovascular exam: Present: regular rate and rhythm. Absent: tachycardia - GI/Abdominal GI/Abdominal exam: Present: normal bowel sounds, tenderness (some chest discomfort but no rigidity or rebound. ), soft - Extremities Exam Extremities exam: Present: normal inspection. Absent: edema - Neurological Exam Neurological exam: Present: alert, oriented X3 Results - Labs CBC & BMP: 05/28/16 04:28 05/28/16 04:28
[2016-05-29 05:05] LABS: Basophils % 0.5 % (0.0-0.8); Eosinophils # 0.3 10*3/uL (0.0-0.87); Eosinophils % 4.7 % (0.00-10.9); Hematocrit 33.6 VOL% (35.7-47.0); Hemoglobin 10.6 GM/DL (12.0-16.0); Immature Granulocytes % 1.9 %; Immature Granulocytes Absolute 0.12 #; Lymphocytes # 1.4 10*3/uL (1.4-4.0); Lymphocytes % 21.7 % (21.3-54.2); Mean Corpuscular HGB Conc 31.5 GM/DL (32-36); Mean Corpuscular Hemoglobin 29 PG (27-34); Mean Corpuscular Volume 92.6 FL (87-102); Mean Platelet Volume 11.5 FL (9.6-12.0); Monocytes # 0.6 10*3/uL (0.11-0.8); Neutrophils # 3.9 10*3/uL (1.4-7.4); Neutrophils % 61.2 % (38.7-73.9); Platelet Count 276 T/CUMM (130-400); Red Blood Count 3.63 MC/CUMM (3.8-5.5); Red Cell Distribution Width 13.3 % (9.3-17.3); White Blood Count 6.3 T/CUMM (4-12)
[2016-05-29 05:20] LABS: Eosinophils 10 % (0-10); Hypochromasia Slight; Lymphocytes 26 % (20-55); Segmented Neutrophils 56 % (50-85); Total Cells Counted 100
[2016-05-29 05:21] LABS: Platelet Estimate Adequate
--- NOTE | 2016-05-29 05:25 | Event Note ---
General Surgery Progress Note Chief Complaint This patient is a 51 year old woman admitted with acute perforated appendicitis treated with laparoscopic appendectomy with lysis of adhesions and drainage of abdominal abscess on 05/24/2016 Interval History No events overnight. Afebrile. Abdominal pain is resolving. LORRIE drain is serosanguineous. Bowel function has returned and patient is tolerating diet regularly. Patient is Sofía relating the hallway. Physical Exam Afebrile with normal vital signs Chest clear Heart tachycardic but regular Abdominal exam with normal bowel sounds, non-distended, incisions clean LORRIE drain serosanguinous Labs Hemoglobin stable Assessment/Plan The patient can be discharged home from my standpoint She needs to stay on antibiotics for 2 weeks postoperatively by mouth The patient had a positive blood culture that did not reflect any abdominal infection and this could be due to another etiology, I'll defer this to the hospitalist. I would prefer her to go home on Cipro and Augmentin to cover cultures Follow-up with me in clinic in 1 week for drain removal [place], prescription written and in chart
[2016-05-29 08:51] VITALS: BP 109/65
[2016-05-29] MEDS: ACETAMINOPHEN 325 MG TABLET PO PRN (08:57)
[2016-05-29] MEDS: AMOXICILLIN/CLAV 875 MG TABLET PO SCH (08:57)
[2016-05-29] MEDS: CIPROFLOXACIN 500 MG TABLET PO SCH (08:57)
[2016-05-29] MEDS: PANTOPRAZOLE 40 MG TABLET PO SCH (08:57)
[2016-05-29] MEDS: GABAPENTIN 400 MG CAPSULE PO SCH (08:57)
--- NOTE | 2016-05-29 09:54 | Discharge Summary ---
Hospital Course - Hospital Course Hospital Course: Ms. Schuler is a 51 year old female with history of hepatitis C and depression substance abuse admitted on 05/23/2016 with the severe abdominal pain associated with nausea vomiting and diarrhea with high fever. She was diagnosed to have acute perforated appendicitis and now is status post laparoscopic appendectomy with lysis of adhesions and drainage of abdominal abscess on 05/24/2016. She is reported to have a positive blood cultures with staph hominis and the strep salivarius. Urine culture showed Escherichia coli cultured from the local abdominal cavity revealed E coli pseudomonas and enterococcus. Her WBC count was 18.3 on admission and today is 6.3 today. She she is doing better today has been off IV antibiotics and placed on by mouth Cipro and Augmentin yesterday. She is afebrile abdominal pain improving LORRIE drain is still in place patient is tolerating diet and able to ambulate. Seen by the Dr. Riddle and plan to have follow-up in his clinic in one week for drain removal. He has recommended an given prescription for oral Cipro and Augmentin for 2 weeks. This likely will also treat UTI quite well. Her blood culture was initially positive probably contaminant she has no more fever or any systemic infection signs WBC count dropping. Blood for MRSA PCR negative. Patient has been cleared by surgery for discharge. On lab review her hemoglobin and hematocrit also stable will discharge home to follow up with Dr. Light as recommended Diagnosis - Discharge Diagnosis (1) Anemia Status: Chronic (2) Acute appendicitis with perforation and peritoneal abscess Status: Acute (3) Urinary tract infection Status: Acute Specialty Discharge - Follow Up or Referrals Follow up with: Rock Light MD [Physician] - 06/05/16 1:45 pm Discharge Plan - Discharge Data Disposition: Disch To Home/Self Care Condition at Discharge: Stable Discharge Diet: advance to your usual diet Activity: increase activity as tolerated - Discharge Medications New Docusate Sodium Cap [Colace Cap] 100 mg PO BID PRN #0 capsule PRN Reason: Constipation HYDROcodone/ACETAMIN 10-325 [Chama 10-325] 1 - 2 tablet PO Q4H PRN #45 tablet PRN Reason: Abdominal Pain Amoxicillin/Clav Tab [Augmentin Tab] 875 mg PO Q12H #28 tablet Ciprofloxacin Tab [Cipro Tab] 500 mg PO BID #28 tablet Amoxicillin/Clav Tab [Augmentin Tab] 875 mg PO BID tablet Ciprofloxacin Tab [Cipro Tab] 500 mg PO Q12HR tablet HYDROcodone/ACETAMIN 10-325 [Chama 10-325] 2 tablet PO Q4H PRN #0 tablet PRN Reason: Pain Moderate (4-7) Continue Ibuprofen Tab [Motrin Tab] 800 mg PO TID Vortioxetine Hydrobromide [Brintellix] 10 mg PO DAILY Gabapentin Cap/Tab [Neurontin Cap/Tab] 400 mg PO QID Buprenorphine HCl 8 mg SL BID - Follow Up or Referral Follow Up: Rock Light MD [Physician] - 06/05/16 1:45 pm - Forms/Instructions Instructions: Laparoscopic Appendectomy (DC) Exam - Constitutional Vitals: Period Temp Pulse Resp BP Sys/Duong Pulse Ox Last 24 Hr 98.0 F-99.1 F 88-103 16-20 100-112/62-77 92-98 General appearance: no acute distress - Respiratory Respiratory exam: Present: clear to auscultation bilaterally. Absent: rales, rhonchi - Cardiovascular Cardiovascular exam: Present: regular rate and rhythm. Absent: tachycardia - GI/Abdominal GI/Abdominal exam: Present: normal bowel sounds, soft. Absent: distended - Neurological Exam Neurological exam: Present: alert, oriented X3 Discharge Results Procedures and tests throughout hospitalization: Pending Orders 05/27/16 19:37 Occult Blood, Stool Routine Stool Culture/Campy/Yersinia Routine 05/28/16 Parasitic Examination Routine Labs on day of discharge: Labs from last 24 hours 05/29/16 04:27 WBC 6.3 RBC 3.63 L Hgb 10.6 L Hct 33.6 L MCV 92.6 MCH 29 MCHC 31.5 L RDW 13.3 Plt Count 276 MPV 11.5 Neut % (Auto) 61.2 Lymph % (Auto) 21.7 Coffee % (Auto) 10.0 Eos % (Auto) 4.7 Baso % (Auto) 0.5 Neut # (Auto) 3.9 Lymph # (Auto) 1.4 Coffee # (Auto) 0.6 Eos # (Auto) 0.3 Baso # (Auto) 0.0 Total Counted 100 Immature Gran % 1.9 Nucleated RBC % 0.0 Immature Gran # 0.12 Segmented Neutrophils 56 Lymphocytes 26 Monocytes 8 Eosinophils 10 Nucleated RBCs # 0.00 Platelet Estimate Adequate Hypochromasia Slight DS: Provider Date of admission: 05/23/16 16:50 Primary care physician: . No PCP Attending physician on admission: Cheri Cotton MD Consults: 05/23/16 18:53 Consult to Pharmacy [CONS] Routine Reason for Pharmacy Consult: Adjust Meds Renal Funct 05/23/16 19:37 Consult to Physician [CONS] Routine Comment: abdominal pain Consulting Provider: Rock Light 05/24/16 07:17 Consult to Anesthesiology [CONS] Routine Consulting Provider: Reason for Anesthesiology: Pre-op Clearance 05/25/16 10:28 Consult to Pharmacy [CONS] Routine Reason for Pharmacy Consult: Dose/Manage Vancomycin Discharging clinician: Duc Dee M.D.
== END 2016-05-29 11:16 | disposition home or self-care (01) | DRG 336 ==
LOC: EDBD → EDUNIT# → N.ED 16:03 → N.EDINP 16:50 → SUATTDRO 16:50 → N.3E 18:20
PROVIDERS: ADMIT Internal Medicine; ATTEND Internal Medicine